=== PATIENT | male | born 1995 | race Caucasian/White ===

== ENCOUNTER 2020-12-16 01:37 | Observation (INO) | payer OTHER, SELFPAY ==
[2020-12-16] MEDS ORDERED: Boostrix 0.5 ML (Tdap) VIAL ONE (01:53)
[2020-12-16 03:11] LABS: #Lymphocytes 1.3 thou/uL (1.20-3.40); #Monocytes 0.7 thou/uL (0.11-0.59); #Neutrophils 14.6 thou/uL (1.40-6.50); %Basophils 0.3 % (0.0-1.0); %Eosinophils 0.2 % (0.0-10.0); %Lymphocytes 7.8 % (21.0-51.0); %Monocytes 4.1 % (0.0-10.0); %Neutrophils 87.6 % (42.0-75.0); Hemoglobin 16.7 g/dL (14.0-18.0); Mean Corpuscular HGB CONC 34.9 g/dL (32.0-36.0); Mean Corpuscular Volume 94.5 fL (78.0-98.0); Mean Platelet Volume 7.1 fL (7.4-10.4); Platelet Count 328 thou/uL (130-400); RBC Distribution Width 11.5 % (11.5-14.5); Red Blood Cell (RBC) Count 5.07 mill/uL (4.70-6.10); White Blood Cell (WBC) Count 16.6 thou/uL (4.8-10.8)
[2020-12-16 03:37] LABS: ALT (SGPT) 21 U/L (8-55); AST (SGOT) 30 U/L (5-34); Alcohol 245 mg/dL (Less than 10); Alkaline Phosphatase 60 U/L (40-110); Anion Gap 17 mmol/L (10-20); BUN (Urea Nitrogen) 7 mg/dL (8.9-20.6); Bilirubin, Total 0.7 mg/dL (0.2-1.2); Calc. Creatinine Clearance 0 mL/min (70-130); Calcium 9.6 mg/dL (7.8-10.44); Carbon Dioxide 25 mmol/L (22-29); Chloride 102 mmol/L (98-107); Globulin 3.3 g/dL (2.4-3.5); Glucose 108 mg/dL (70-105); Potassium 4.5 mmol/L (3.5-5.1); Protein, Total 8.3 g/dL (6.0-8.3); Sodium 139 mmol/L (136-145)
[2020-12-16] MEDS ORDERED: Ondansetron PF 4 MG/2 ML Vial IVP PRN (09:21)
[2020-12-16] MEDS ORDERED: hydrALAZINE 20 MG/ML VIAL SLOW IVP PRN (09:21)
[2020-12-16] MEDS ORDERED: Ondansetron ODT 4 MG TAB PO PRN (09:21)
[2020-12-16] MEDS ORDERED: Dextrose 5% in Water 1,000 ML IV PRN (09:21)
[2020-12-16] MEDS ORDERED: Promethazine HCl 25 MG/ML VIAL IM PRN (09:21)
[2020-12-16] MEDS ORDERED: Dextrose 50% Abboject 50 ML SYRINGE SLOW IVP PRN (09:21)
[2020-12-16] MEDS ORDERED: traMADol HCl 50 MG TAB PO PRN ×2 (09:21)
[2020-12-16] MEDS ORDERED: Cyclobenzaprine 10 MG TAB PO PRN (09:21)
[2020-12-16 10:24] VITALS: BMI 20.2
[2020-12-16] MEDS ORDERED: CEFAZOLIN 1 GM in Sodium Chloride 0.9% 100 ML IVPB SCH (12:00)
[2020-12-16] MEDS ORDERED: Famotidine/PF 20 mg/2ml Vial SLOW IVP SCH ×2 (12:15→21:00)
[2020-12-16] MEDS ORDERED: Ketorolac Tromethamine 30 MG/ML VIAL IVP SCH (12:15)
[2020-12-16 12:20] VITALS: BP 138/79; TEMP 98.1
[2020-12-16] MEDS ORDERED: Multivitamins, Adult 10 ML, Folic Acid 1 MG, Thiamine HCl 100 MG in Dextrose 5 %-0.45 %... IV SCH (12:30)
[2020-12-16] MEDS ORDERED: Acetaminophen 500 MG TAB PO SCH (12:30)
[2020-12-16] MEDS ORDERED: Ibuprofen 800 MG TAB PO SCH (12:30)
[2020-12-16 18:15] LABS: SARS-CoV-2 PCR by NAA Not Detected (NotDetected)
[2020-12-17] MEDS ORDERED: Multivitamins, Adult 10 ML, Folic Acid 1 MG, Thiamine HCl 100 MG in Dextrose 5 %-0.45 %... IV SCH (09:21)
== END 2020-12-16 17:05 | disposition home or self-care (01) ==
LOC: ERS 01:37 → SURG B 06:46 → INTOOBSV 06:46
PROVIDERS: ADMIT Surgery; ATTEND Surgery
DX: S61.213A Laceration without foreign body of left middle finger without damage to nail, initial encounter (principal); S61.215A Laceration without foreign body of left ring finger without damage to nail, initial encounter; S61.217A Laceration without foreign body of left little finger without damage to nail, initial encounter; F12.10 Cannabis abuse, uncomplicated; F10.129 Alcohol abuse with intoxication, unspecified; Z53.8 Procedure and treatment not carried out for other reasons; Z20.822 Contact with and (suspected) exposure to COVID-19; W45.8XXA Other foreign body or object entering through skin, initial encounter; Y90.8 Blood alcohol level of 240 mg/100 ml or more; Y92.89 Other specified places as the place of occurrence of the external cause
CPT/HCPCS: 80053; 80307; 85025; 90715; 96365; 96375; 96376; G0378; J0690; J1885; J3490; S0028; U0003; U0005

== ENCOUNTER 2020-12-17 11:29 | Day surgery (SDC) | payer OTHER ==
[2020-12-17] MEDS ORDERED: Lidocaine 1% w/Epinephrine 1:100K 20 ML VIAL ONE ×2 (12:40→12:50)
[2020-12-17] MEDS ORDERED: Bupivacaine 0.25% HCL 30 ML VIAL ONE (12:40)
[2020-12-17] MEDS ORDERED: EPINEPHrine 1 MG/ML AMP ONE (12:41)
[2020-12-17] MEDS ORDERED: Fentanyl 100 MCG/2 ML VIAL ONE ×2 (12:57→15:10)
[2020-12-17] MEDS ORDERED: PROPOFOL 200 MG/20 ML VIAL ONE (13:12)
[2020-12-17] MEDS ORDERED: Lidocaine 1% PF 5 ML VIAL ONE (13:12)
[2020-12-17] MEDS ORDERED: HYDROcodone/Acetaminophen 5/325 mg Tablet ONE (16:14)
== END 2020-12-17 16:56 | disposition home or self-care (01) ==
LOC: SDC 11:29
PROVIDERS: ATTEND Surgery Surgery of the Hand
PROC: 0LQ80ZZ Repair Left Hand Tendon, Open Approach (ICD-10-PCS; principal; 2020-12-17)
PROC: 0HQGXZZ Repair Left Hand Skin, External Approach (ICD-10-PCS; principal; 2020-12-17)
PROC: 01Q40ZZ Repair Ulnar Nerve, Open Approach (ICD-10-PCS; principal; 2020-12-17)
DX: S66.125A Laceration of flexor muscle, fascia and tendon of left ring finger at wrist and hand level, initial encounter (principal); S64.495A Injury of digital nerve of left ring finger, initial encounter; S61.223A Laceration with foreign body of left middle finger without damage to nail, initial encounter; S61.225A Laceration with foreign body of left ring finger without damage to nail, initial encounter; S61.227A Laceration with foreign body of left little finger without damage to nail, initial encounter; X58.XXXA Exposure to other specified factors, initial encounter
CPT/HCPCS: J0171; J0690; J2704; J3010; S0020